=== PATIENT | female | born 1975 | race Caucasian/White ===

== ENCOUNTER 2022-07-01 12:53 | Emergency (ER) | payer SELFPAY ==
[~2022-07-01] VITALS: Ht 165.1 cm; Wt 65.4 kg
[2022-07-01 12:54] VITALS: BP 103/70
[2022-07-01] MEDS ORDERED: LIDOCAINE 2% MDV 20ML VIAL SC ONE (16:55)
[2022-07-01] MEDS ORDERED: MORPHINE 2 MG/ML 1ML VIAL IM ONE (17:15)
[2022-07-01] MEDS ORDERED: DOXY-444 PO (17:39)
== END 2022-07-01 17:56 | disposition home or self-care (01) ==
LOC: M ED 12:53
DX: L02.31 Cutaneous abscess of buttock (principal); E11.9 Type 2 diabetes mellitus without complications; I10 Essential (primary) hypertension; E78.5 Hyperlipidemia, unspecified; F17.200 Nicotine dependence, unspecified, uncomplicated; Z86.14 Personal history of Methicillin resistant Staphylococcus aureus infection; Z90.710 Acquired absence of both cervix and uterus; Z98.890 Other specified postprocedural states; Z90.49 Acquired absence of other specified parts of digestive tract; Z96.89 Presence of other specified functional implants
CPT/HCPCS: 96372; 99282; J2270